=== PATIENT | female | born 1975 | race Caucasian/White ===

== ENCOUNTER 2022-05-23 16:42 | Emergency (ER) | payer OTHER ==
[~2022-05-23] VITALS: Ht 160 cm; Wt 76.2 kg
--- NOTE | 2022-05-23 17:04 | NUR ---
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
[2022-05-23] MEDS ORDERED: IV NORMAL SALINE 1000 ML BAG IV ONE (17:15)
[2022-05-23] MEDS ORDERED: MORPHINE SULFATE 2 MG/1 ML DISP.SYRIN IV ONE (17:15)
[2022-05-23] MEDS ORDERED: ONDANSETRON 4 MG/2 ML VIAL IV ONE (17:15)
[2022-05-23] MEDS ORDERED: MORPHINE SULFATE 4 MG/1 ML DISP.SYRIN ONE (17:19)
[2022-05-23] MEDS ORDERED: ONDANSETRON 4 MG/2 ML VIAL ONE (17:19)
[2022-05-23] MEDS ORDERED: VICODIN (17:20)
[2022-05-23] MEDS ORDERED: ESTRADIOL (17:20)
[2022-05-23] MEDS ORDERED: DEXILANT (17:20)
[2022-05-23] MEDS ORDERED: GABAPENTIN (17:20)
--- NOTE | 2022-05-23 17:21 | NUR ---
PATIENT IS UNABLE TO RECALL EXACT NAMES & DOSAGES OF HER HOME MEDICINES AT THIS TIME.
[2022-05-23 17:22] LABS: HEMATOCRIT 38.2 % (31.2-41.9); MEAN CORPUSCULAR HEMOGLOBIN 30.4 uug (24.7-32.8); MEAN CORPUSCULAR VOLUME 89.5 fL (75.5-95.3); PLATELET COUNT (AUTO) 311 K/uL (179-408)
[2022-05-23] MEDS ORDERED: HYDROMORPHONE 1 MG/1 ML DISP.SYRIN ONE ×3 (17:27→19:49)
[2022-05-23] MEDS ORDERED: HYDROMORPHONE 1 MG/1 ML DISP.SYRIN IV ONE ×3 (17:30→19:45)
[2022-05-23 17:39] LABS: POTASSIUM 3.7 mmol/L (3.5-5.1)
[2022-05-23 17:44] LABS: BILIRUBIN,DIRECT 0.1 mg/dL (0.0-0.2); BILIRUBIN,TOTAL 0.3 mg/dL (0.2-1.0); TOTAL PROTEIN, SERUM 7.2 g/dL (6.4-8.2)
--- NOTE | 2022-05-23 18:05 | NUR ---
Patient states her pain is about 7/10. Dr. Lay notified.
[2022-05-23] MEDS ORDERED: HYDR-3980 PO (18:57)
--- NOTE | 2022-05-23 19:10 | NUR ---
Received report from MARK Bojorquez.
--- NOTE | 2022-05-23 19:57 | NUR ---
Patient discharged to home in stable condition. A/O x 4. NAD noted. Ambulatory with a steady gait. All belongings with patient. Written and verbal after care instructions given. Patient verbalizes understanding of instructions. Stressed follow up or return to ER for worsening s/s.
[2022-05-23 19:59] VITALS: BP 125/51
== END 2022-05-23 20:00 | disposition home or self-care (01) ==
LOC: ER 16:45
DX: R55 Syncope and collapse (principal); S09.90XA Unspecified injury of head, initial encounter; W18.30XA Fall on same level, unspecified, initial encounter; Y92.531 Health care provider office as the place of occurrence of the external cause; Y99.0 Civilian activity done for income or pay; R10.30 Lower abdominal pain, unspecified; N83.201 Unspecified ovarian cyst, right side; D25.9 Leiomyoma of uterus, unspecified; R94.31 Abnormal electrocardiogram [ECG] [EKG]; Z90.49 Acquired absence of other specified parts of digestive tract; Z88.8 Allergy status to other drugs, medicaments and biological substances; G89.4 Chronic pain syndrome; Z88.5 Allergy status to narcotic agent; J45.909 Unspecified asthma, uncomplicated; K21.9 Gastro-esophageal reflux disease without esophagitis
CPT/HCPCS: 99285; 96374; 76856; 96361; 96375; 80076; 80048; 85025; 84484; 36415; 96376; J2405; J1170 ×3; J2270; J7040; 93005